=== PATIENT | male | born 1950 | race Caucasian/White ===

== ENCOUNTER 2017-10-04 11:24 | Emergency (ER) | payer OTHER ==
[~2017-10-04] VITALS: Ht 180.3 cm; Wt 109.3 kg
[2017-10-04 12:14] LABS: ALBUMIN 4.7 g/dL (3.2-4.8); CHLORIDE 101 mEq/L (99-109); POTASSIUM 3.9 mEq/L (3.7-5.4); SODIUM 138 mEq/L (136-147)
[2017-10-04 12:16] LABS: GLUCOSE 162 mg/dL (70-99); TOTAL PROTEIN 7.3 g/dL (6.4-8.3)
[2017-10-04 12:17] LABS: HEMATOCRIT 46.7 % (38.0-50.0); HEMOGLOBIN 16.2 G/DL (12.5-16.6); MCH 30.3 PG (29.0-34.0); MCHC 34.7 G/DL (30.0-36.0); MCV 87.3 FL (86-99); PLATELET COUNT 331 K/uL (156-360); RBC DIS.WIDTH-CV 12.4 % (11.8-14.6); RBC DIS.WIDTH-SD 39.3 % (39-53); RED BLOOD COUNT 5.35 M/uL (4.00-5.50); WHITE BLOOD COUNT 9.9 K/uL (4.1-10.2)
[2017-10-04 12:20] LABS: ALKALINE PHOSPHATASE 69 IU/L (3-129); CREATININE 1.9 mg/dL (0.6-1.3); GFR ESTIMATE (CALCULATED) 38 mL/min/ (58.99-99999)
[2017-10-04 12:21] LABS: AST (GOT) 22 IU/L (2-34); UREA NITROGEN (BUN) 27 mg/dL (9-23)
[2017-10-04 12:23] LABS: ALT (GPT) 29 IU/L (3-49)
[2017-10-04 12:43] LABS: LIPASE 25 U/L (1.0-51.0)
[2017-10-04 12:57] LABS: APPEARANCE CLEAR ((CLEAR)); BILIRUBIN NEGATIVE; BLOOD LARGE; COLOR YELLOW ((YELLOW)); GLUCOSE (STRIP) 50; KETONES 5; LEUKOCYTES NEGATIVE; NITRITE NEGATIVE; PROTEIN (STRIP) 30; SPECIFIC GRAVITY 1.026 (1.000-1.030); UROBILINOGEN 0.2 MG/DL (0.2-1.0)
[2017-10-04 13:00] LABS: BACTERIA NONE SEEN /HPF; EPITHELIAL CELLS RARE /HPF; MUCUS NONE SEEN /LPF; RED BLOOD CELLS 30-40 /HPF (0-5); UCUL ADDED? NO; WHITE BLOOD CELLS 0-5 /HPF (0-5)
[2017-10-04] MEDS ORDERED: PERCOCET 5/31 TABLET PO (13:47)
[2017-10-04] MEDS ORDERED: FLOMAX0.4 MG PO (13:47)
[2017-10-04] MEDS ORDERED: ZOFRAN ODT4 MG PO (13:47)
[2017-10-04 14:03] VITALS: BP 159/82
[2017-10-06] MEDS ORDERED: ZYRTEC10 M3 PO (13:22)
[2017-10-06] MEDS ORDERED: LO-DOSE ASPIRIN81 M1 PO (13:23)
[2017-10-06] MEDS ORDERED: MUCINEX600 MG PO (13:23)
[2017-10-06] MEDS ORDERED: GLUCOPHAGE1000 MG PO (13:23)
[2017-10-06] MEDS ORDERED: ZESTORETIC 20-1 EAC1 PO (13:24)
[2017-10-06] MEDS ORDERED: FISH OIL 1,0001 EAC7 PO (13:24)
[2017-10-06] MEDS ORDERED: CARDIZEM120 MG PO (13:24)
[2017-10-06] MEDS ORDERED: XALATAN2.5 ML BOTH EYES (13:24)
[2017-10-06] MEDS ORDERED: CRESTOR5 MG PO (13:25)
== END 2017-10-04 14:07 | disposition home or self-care (01) ==
LOC: EME 11:24
DX: N13.2 Hydronephrosis with renal and ureteral calculous obstruction (principal); E11.9 Type 2 diabetes mellitus without complications; E78.5 Hyperlipidemia, unspecified; I10 Essential (primary) hypertension
CPT/HCPCS: 74176; 80053; 81003; 83690; 85027; 99281; 99285; J2405; J3010; J7030

== ENCOUNTER 2017-10-08 08:04 | Day surgery (SDC) | payer OTHER ==
[~2017-10-08] VITALS: Ht 180.3 cm; Wt 108.9 kg
[~2017-10-08 08:04] MED LIST: CARDIZEM120 MG PO; CRESTOR5 MG PO; FISH OIL 1,0001 EAC7 PO; FLOMAX0.4 MG PO; GLUCOPHAGE1000 MG PO; LO-DOSE ASPIRIN81 M1 PO; MUCINEX600 MG PO; PERCOCET 5/31 TABLET PO; XALATAN2.5 ML BOTH EYES; ZESTORETIC 20-1 EAC1 PO; ZOFRAN ODT4 MG PO; ZYRTEC10 M3 PO
[2017-10-08 08:39] VITALS: BP 123/86
[2017-10-08 12:29] VITALS: BP 182/98
== END 2017-10-08 12:50 | disposition home or self-care (01) ==
LOC: SDC 08:04
PROVIDERS: Urology
DX: N13.2 Hydronephrosis with renal and ureteral calculous obstruction (principal); I10 Essential (primary) hypertension; E11.9 Type 2 diabetes mellitus without complications; E78.5 Hyperlipidemia, unspecified; Z91.040 Latex allergy status; Z88.0 Allergy status to penicillin; Z91.013 Allergy to seafood; Z79.82 Long term (current) use of aspirin; Z79.84 Long term (current) use of oral hypoglycemic drugs
CPT/HCPCS: 82948; C1758; C2625; J1100; J1580; J2250; J2405; J3010; J7050; J7643